=== PATIENT | female | born 1940 | race Caucasian/White ===

== ENCOUNTER → 2016-06-22 | Outpatient (CLI) | payer MEDICARE, BC ==
[2013-12-31 10:30] VITALS: BP 123/62
[~2016-06-22] MED LIST: AMLO5TAB2 PO; CAPT25TA3 PO; GLIP5TAB10 PO; MOXI3DRO2 LEFTEYE; NEPA1.7D LEFTEYE; PRED5DRO6 LEFTEYE; SIMV20TA3 PO
--- NOTE | 2016-06-22 16:14 | RAD ---
CT of the head without contrast, 06/22/2016: History: Fall, head trauma Comparison is made to a study from 03/13/2014. There is moderate cerebral atrophy. The ventricles are within normal limits in size. There is no shift of the midline structures. There is no evidence of acute intracranial hemorrhage or mass effect. IMPRESSION: 1. Moderate cerebral atrophy. 2. No acute intracranial abnormality is detected. PQRS Compliance Statement: One or more of the following individualized dose reduction techniques were utilized for this examination: 1. Automated exposure control 2. Adjustment of the mA and/or kV according to patient size 3. Use of iterative reconstruction technique
== END | disposition home or self-care (01) ==
LOC: CT 15:46
PROVIDERS: ATTEND Nurse Practitioner Family
DX: S09.8XXA Other specified injuries of head, initial encounter (principal); G31.9 Degenerative disease of nervous system, unspecified; Z91.81 History of falling; X58.XXXA Exposure to other specified factors, initial encounter; Y93.89 Activity, other specified; Y92.89 Other specified places as the place of occurrence of the external cause; Y99.8 Other external cause status
CPT/HCPCS: 70450

== ENCOUNTER 2019-09-09 07:52 | Emergency (ER) | payer MEDICARE, BC ==
[~2019-09-09] VITALS: Ht 162.6 cm; Wt 42.6 kg
[~2019-09-09 07:52] MED LIST changes: +AMLO5TAB10 PO; -AMLO5TAB2 PO; +MOXI3DRO18 LEFTEYE; -MOXI3DRO2 LEFTEYE; +PRED5DRO16 LEFTEYE; -PRED5DRO6 LEFTEYE; +SIMV20TA18 PO; -SIMV20TA3 PO
[2019-09-09] MEDS ORDERED: IV NORMAL SALINE 1,000ML 1,000 ML IV ONE (08:00)
--- NOTE | 2019-09-09 08:17 | EKG ---
[address] [address] Test Date: 2019-09-09 Test Time: 08:07:36 Pat Name: EHRI SULLIVAN Department: Room: Gender: F [employer]a Automation Engineer: : [id number] Requested By: LIVAN WAGONER Order Number: [id number] Reading MD: Jackson Arroyo MD Measurements Intervals [place] Rate: 55 P: 58 AR: 148 QRS: -14 QRSD: 82 T: 52 QT: 442 QTc: 425 Interpretive Statements SINUS RHYTHM Electronically Signed On 09-10-2019 11:23:35 CDT by Jackson Arroyo MD
--- NOTE | 2019-09-09 08:29 | PHYS DOC ---
Past History Past Medical History: Dementia, Diabetes, Hypertension Past Medical History Limited secondary to dementia/altered mental status Past Surgical History Limited secondary to dementia/altered mental status Smoking: Non-smoker Alcohol Use: None Drug Use: None Social History Limited secondary to dementia/altered mental status General Adult EDM: Chief Complaint: ALTERED MENTAL STATUS HPI: HPI: 79-year-old female with past medical history of dementia presents via EMS with report of increased confusion and weakness this morning. Patient had also stated "pain all over ". No history of known trauma. No history of fever. Spouse denies known exposure to COVID-19. Spouse reports patient typically up and active in morning but today he had to wake her up which was abnormal for her. History of present illness limited secondary to dementia/altered mental status Review of Systems: Review of Systems: Review of systems limited secondary to dementia/altered mental status Current Medications: Current Meds: Current Medications Medications (Trade) Dose Ordered Sig/Ambrosio Start Time Stop Time Status Last Admin Dose Admin Sodium Chloride 1,000 ml @ 1,000 mls/hr 1X ONCE 09/09/19 08:00 09/09/19 08:59 Allergies: Allergies: Allergies Coded Allergies Type Severity Reaction Last Updated Verified No Known Drug Allergies 12/10/13 No Physical Exam: PE: Constitutional: Well developed, frail, no acute distress, non-toxic appearance HENT: Normocephalic, atraumatic Eyes: PERRL, EOMI, conjunctiva normal, no discharge Neck: Normal range of motion, no tenderness, supple, no meningeal signs Lungs & Thorax: No respiratory distress, equal chest rise and fall Abdomen: Soft, no tenderness/guarding/rebound tenderness Skin: Warm, dry, no erythema, no rash Extremities: No tenderness, ROM intact, no edema Neurologic: Alert and oriented X name only, normal motor function, normal sensory function, no focal deficits noted Psychologic: Affect normal, judgment abnormal EKG: EKG: @0807 Sinus bradycardia at 55 bpm, NO ST elevation, QRS 82ms, QT/QTc 442/425ms, Q wave in I and aVL and V2-V6 Radiology/Procedures: Radiology/Procedures: PROCEDURE: CT HEAD WO CONTRAST PQRS Compliance Statement: One or more of the following individualized dose reduction techniques were utilized for this examination: 1. Automated exposure control 2. Adjustment of the mA and/or kV according to patient size 3. Use of iterative reconstruction technique CT HEAD WITHOUT CONTRAST History: Reason: altered mental status / Spl. Instructions: / History: Comparison: CT head without contrast, June 22, 2016. Technique: Axial images are obtained of the head from the skull base through the vertex without IV contrast. Findings: No mass-effect, midline shift, extra-axial fluid collection, hemorrhage, or obvious acute infarction is identified. Basilar cisterns are patent. The ventricles and sulci are prominent, consistent with age-related cerebral atrophy. There is supratentorial white matter hypoattenuation. This is a nonspecific finding but is commonly due to chronic small vessel ischemic disease. Bone windows demonstrate no acute calvarial abnormality. The visualized paranasal sinuses are clear. Mastoid air cells are well aerated. IMPRESSION: 1. No acute intracranial abnormality. 2. Age-related cerebral atrophy and supratentorial white matter changes probably due to chronic small vessel ischemic disease. Electronically signed by: Zaire Duffy MD (09/09/2019 8:48 AM) [id number] PROCEDURE: PORTABLE CHEST 1V INDICATION: Reason: altered mental status / Spl. Instructions: / History: COMPARISON: None. FINDINGS: Single view of chest obtained. Calcific atherosclerosis. No focal airspace consolidation or pulmonary edema. Mildly disorganized pulmonary markings. IMPRESSION: * No focal airspace consolidation or edema. Electronically signed by: Sathya Bob MD (09/09/2019 8:46 AM) [id number] Course & Med Decision Making: Course & Med Decision Making Pertinent Labs and Imaging studies reviewed. (See chart for details) Elderly patient with past medical history of dementia presents via EMS with altered mental status. EKG stable. CT head without acute process. Labs obtained and posted to chart. Chest x-ray stable. Discussed observation admission vs discharge with patient and family. Family elected to discharge patient with close outpatient follow-up. Patient stable for discharge with outpatient follow-up with PCP. Discussed findings and plan with patient and family, who acknowledge understanding and agreement. Lulu Disclaimer: Lulu Disclaimer: This electronic medical record was generated, in whole or in part, using a voice recognition dictation system. Departure Departure: Impression: Primary Impression: Altered mental status Qualified Codes: R41.82 - Altered mental status, unspecified Additional Impression: History of dementia Disposition: 01 HOME/RESIDENCE PRIOR TO ADM Condition: STABLE Referrals: JUANJOSE CAMPUZANO MD (PCP) Patient Instructions: Altered Mental Status, Dementia, [id number] Justification of Admission: Justification of Admission: Justification of Admission Dx: N/A LIVAN WAGONER DO Sep 09, 2019 08:29
[2019-09-09 08:47] LABS: BASO # 0.1 x10^3/uL (0.0-0.2); BASO % 1 % (0-3); EOS # 0.1 x10^3/uL (0.0-0.7); EOS % 1 % (0-3); HEMATOCRIT 45.6 % (36.0-47.0); HEMOGLOBIN 15.4 g/dL (12.0-15.5); LYMPH # 2.2 x10^3/uL (1.0-4.8); LYMPH % 32 % (24-48); MEAN CORPUSCULAR HEMOGLOBIN 32 pg (25-35); MEAN CORPUSCULAR HGB CONC 34 g/dL (31-37); MEAN CORPUSCULAR VOLUME 96 fL (79-100); MONO # 0.3 x10^3/uL (0.0-1.1); MONO % 5 % (0-9); NEUT # 4.3 x10^3uL (1.8-7.7); NEUT % 61 % (31-73); PLATELET COUNT 196 x10^3/uL (140-400); RED BLOOD COUNT 4.74 x10^6/uL (3.50-5.40); RED CELL DISTRIBUTION WIDTH 12.7 % (11.5-14.5)
--- NOTE | 2019-09-09 08:50 | RAD ---
INDICATION: Reason: altered mental status / Spl. Instructions: / History: COMPARISON: None. FINDINGS: Single view of chest obtained. Calcific atherosclerosis. No focal airspace consolidation or pulmonary edema. Mildly disorganized pulmonary markings. IMPRESSION: * No focal airspace consolidation or edema. Electronically signed by: Sathya Bob MD (09/09/2019 8:46 AM) [id number]
--- NOTE | 2019-09-09 08:51 | RAD ---
RS Compliance Statement: One or more of the following individualized dose reduction techniques were utilized for this examination: 1. Automated exposure control 2. Adjustment of the mA and/or kV according to patient size 3. Use of iterative reconstruction technique CT HEAD WITHOUT CONTRAST History: Reason: altered mental status / Spl. Instructions: / History: Comparison: CT head without contrast, June 22, 2016. Technique: Axial images are obtained of the head from the skull base through the vertex without IV contrast. Findings: No mass-effect, midline shift, extra-axial fluid collection, hemorrhage, or obvious acute infarction is identified. Basilar cisterns are patent. The ventricles and sulci are prominent, consistent with age-related cerebral atrophy. There is supratentorial white matter hypoattenuation. This is a nonspecific finding but is commonly due to chronic small vessel ischemic disease. Bone windows demonstrate no acute calvarial abnormality. The visualized paranasal sinuses are clear. Mastoid air cells are well aerated. IMPRESSION: 1. No acute intracranial abnormality. 2. Age-related cerebral atrophy and supratentorial white matter changes probably due to chronic small vessel ischemic disease. Electronically signed by: Zaire Duffy MD (09/09/2019 8:48 AM) [id number]
[2019-09-09 09:17] LABS: MAGNESIUM 2.2 mg/dL (1.8-2.4)
[2019-09-09 10:42] LABS: CALCIUM 9.3 mg/dL (8.5-10.1); CREATININE 1.2 mg/dL (0.6-1.0); GFR 43.6; POTASSIUM 4.7 mmol/L (3.5-5.1)
[2019-09-09 10:47] LABS: ALBUMIN 3.7 g/dL (3.4-5.0); ALBUMIN/GLOBULIN RATIO 1.1 (1.0-1.7); TOTAL BILIRUBIN 0.9 mg/dL (0.2-1.0)
[2019-09-09 11:21] LABS: BILIRUBIN,URINE NEG (NEG); CLARITY,URINE HAZY; COLOR,URINE YELLOW; GLUCOSE,URINE NEG (NEG); NITRITE,URINE NEG (NEG); UROBILINOGEN,URINE 0.2 mg/dL (0.2 mg/dL)
[2019-09-09 11:22] LABS: BACTERIA,URINE 0 /HPF (0-FEW); HYALINE CASTS, URINE OCC /HPF; SQUAMOUS EPITHELIAL CELL,UR MOD /LPF
[2019-09-09 11:30] VITALS: BP 132/66
== END 2019-09-09 12:47 | disposition home or self-care (01) ==
LOC: ER 07:52
DX: R41.82 Altered mental status, unspecified (principal); R53.1 Weakness; F03.90 Unspecified dementia, unspecified severity, without behavioral disturbance, psychotic disturbance, mood disturbance, and anxiety
CPT/HCPCS: 36415; 70450; 71045; 80053; 81001; 82140; 82553; 83735; 83880; 84484; 85025; 85610; 85730; 93005; 96360; 99285; J7030